=== PATIENT | male | born 1965 | race Caucasian/White ===

== ENCOUNTER 2023-03-01 13:49 | Inpatient (IN) | payer MEDICARE, OTHER ==
[~2023-03-01] VITALS: Ht 175.3 cm; Wt 104.3 kg
[2023-03-01] MEDS ORDERED: MAGNESIUM HYDROXIDE 30 ML UDC PO PRN (14:00)
[2023-03-01] MEDS ORDERED: MAG HYDROX/AL HYDROX/SIMETH 30 ML UDC PO PRN (14:00)
[2023-03-01] MEDS: LORAZEPAM 1 MG TABLET PO PRN (14:25)
[2023-03-01] MEDS ORDERED: FAMO20TA8 PO (14:38)
[2023-03-01] MEDS ORDERED: TAMS-12 PO (14:38)
[2023-03-01] MEDS ORDERED: EVOL420W2 SQ (14:38)
[2023-03-01] MEDS ORDERED: ALLO100T PO (14:38)
[2023-03-01] MEDS ORDERED: EMPA10TA PO (14:38)
[2023-03-01] MEDS ORDERED: MONT10TA22 PO (14:38)
[2023-03-01] MEDS ORDERED: METO50TA16 PO (14:38)
[2023-03-01] MEDS ORDERED: LAMO200T2 PO (14:38)
[2023-03-01] MEDS ORDERED: CHOL200059 PO (14:38)
[2023-03-01] MEDS ORDERED: BUME1TAB8 PO (14:38)
[2023-03-01] MEDS ORDERED: INSU100V27 SQ (14:38)
[2023-03-01] MEDS ORDERED: SACU1TAB PO (14:38)
[2023-03-01] MEDS ORDERED: CALC0.253 PO (14:38)
[2023-03-01] MEDS ORDERED: MOME13HF IH (14:38)
[2023-03-01] MEDS ORDERED: OMEG1CAP18 PO (14:38)
[2023-03-01] MEDS ORDERED: BLOO-668 IN (14:38)
[2023-03-01] MEDS ORDERED: DEXT50VI3 IV (14:38)
[2023-03-01] MEDS ORDERED: INSU100V7 SQ (14:38)
[2023-03-01] MEDS ORDERED: APIX5TAB PO (14:38)
[2023-03-01] MEDS ORDERED: ATOR80TA PO (14:38)
[2023-03-01] MEDS ORDERED: DOCU100C36 PO (14:38)
[2023-03-01] MEDS ORDERED: CLON0.1T PO (14:38)
[2023-03-01] MEDS ORDERED: ISOS60TA72 PO (14:38)
[2023-03-01] MEDS ORDERED: POTA20TA83 PO (14:38)
[2023-03-01] MEDS ORDERED: SERT100T PO (14:38)
[2023-03-01] MEDS ORDERED: ALBU18HF2 IH (14:38)
[2023-03-01] MEDS ORDERED: HYDR100T27 PO (14:38)
[2023-03-01] MEDS ORDERED: OLAN5TAB3 PO (14:38)
[2023-03-01] MEDS ORDERED: FINERENONE PO (14:38)
[2023-03-01] MEDS ORDERED: FERR325T24 PO (14:38)
[2023-03-01] MEDS ORDERED: MULT-465 PO (14:38)
[2023-03-01 16:00] VITALS: BP 134/88; TEMP 98.4; O2SAT 95
[2023-03-01] MEDS ORDERED: BLOOD SUGAR DIAGNOSTIC 1 EACH STRIP IN ONE (16:00)
[2023-03-01] MEDS ORDERED: CLONIDINE HCL 0.1 MG TABLET PO PRN (20:00)
[2023-03-01 21:13] LABS: CALCIUM, SERUM 10.2 mg/dL (8.5-10.1); CREATININE 2.5 mg/dL (0.6-1.3); POTASSIUM 3.4 mmol/L (3.5-5.1)
[2023-03-01] MEDS ORDERED: BLOOD SUGAR DIAGNOSTIC 1 EACH STRIP IN SCH (22:00)
[2023-03-01] MEDS ORDERED: DEXTROSE 50%-WATER 50 ML DISP.SYRIN IV PRN (22:00)
[2023-03-01] MEDS: INSULIN REGULAR, HUMAN 100 UNIT/ML 3 ML VIAL SQ PRN (22:17)
[2023-03-01] MEDS: FAMOTIDINE (20 MG) 20 MG TABLET PO SCH (22:18)
[2023-03-01] MEDS: INSULIN GLARGINE, 100 UNIT/ML CARTRIDGE SQ SCH (22:18)
[2023-03-01] MEDS: ATORVASTATIN 40 MG TABLET PO SCH (22:19)
[2023-03-01] MEDS: BLOOD SUGAR DIAGNOSTIC 1 EACH STRIP IN SCH (22:55)
[2023-03-01] MEDS: ZOLPIDEM TARTRATE 5 MG TABLET PO PRN (23:10)
[2023-03-02 07:17] LABS: ALBUMIN 3.3 g/dL (3.4-5.0); BILIRUBIN,TOTAL 0.4 mg/dL (0.2-1.0); CALCIUM, SERUM 9.8 mg/dL (8.5-10.1); CREATININE 2.4 mg/dL (0.6-1.3)
[2023-03-02] MEDS: BLOOD SUGAR DIAGNOSTIC 1 EACH STRIP IN SCH ×2 (07:47→11:28)
[2023-03-02] MEDS: INSULIN REGULAR, HUMAN 100 UNIT/ML 3 ML VIAL SQ PRN ×3 (07:51→17:22)
[2023-03-02 08:00] VITALS: BP 146/66; TEMP 97.8; O2SAT 97
[2023-03-02] MEDS: FERROUS SULFATE (325 MG) 325 MG/TAB TABLET PO SCH (08:03)
[2023-03-02] MEDS: ALBUTEROL FS 2.5 MG/3 ML VIAL.NEB NEB SCH ×3 (08:31→19:30)
[2023-03-02] MEDS: CHOLECALCIFEROL 1,000 UNIT TABLET (VIT D3) PO SCH (08:33)
[2023-03-02] MEDS: hydrALAZINE HCL 50 MG TABLET PO SCH ×3 (08:34→16:17)
[2023-03-02] MEDS: DOCUSATE SODIUM 100 MG CAPSULE PO SCH (08:35)
[2023-03-02] MEDS: ALLOPURINOL 100 MG TABLET PO SCH (08:35)
[2023-03-02] MEDS: MONTELUKAST SODIUM (10MG) 10 MG TABLET PO SCH (08:35)
[2023-03-02] MEDS: METOPROLOL TARTRATE 50 MG TABLET PO SCH ×2 (08:35→16:16)
[2023-03-02] MEDS: ISOSORBIDE MONONITRATE (30MG) 30 MG TAB.SR.24H PO SCH (08:35)
[2023-03-02] MEDS: BUMETANIDE (1 MG) 1 MG TABLET PO SCH (08:35)
[2023-03-02] MEDS: TAMSULOSIN 0.4 MG CAP.SR.24H PO SCH (08:35)
[2023-03-02] MEDS: APIXABAN 5 MG TABLET PO SCH ×2 (08:36→16:16)
[2023-03-02] MEDS: CALCITRIOL 0.25 MCG CAPSULE PO SCH (08:37)
[2023-03-02] MEDS ORDERED: FLUTICASONE/SALMETEROL DISKUS IH SCH (09:00)
[2023-03-02] MEDS ORDERED: POTASSIUM CHLORIDE 20 MEQ TAB.PRT.SR PO SCH (10:30)
[2023-03-02] MEDS: POTASSIUM CHLORIDE 20 MEQ TAB.PRT.SR PO SCH ×2 (10:30→12:16)
[2023-03-02] MEDS: OLANZAPINE 10 MG TABLET PO SCH ×2 (11:33→16:15)
[2023-03-02] MEDS: LITHIUM CARBONATE 150 MG CAPSULE PO SCH ×2 (11:33→23:15)
[2023-03-02 13:23] LABS: APPEARANCE,URINE CLEAR (CLEAR); BILIRUBIN,URINE NEGATIVE (NEGATIVE); BLOOD, URINE NEGATIVE Ery/uL (NEGATIVE); COLOR,URINE YELLOW (YELLOW); KETONES,URINE NEGATIVE (NEGATIVE); LEUKOCYTE ESTERASE ,URINE NEGATIVE (NEGATIVE); NITRITE, URINE NEGATIVE (NEGATIVE); PH,URINE 5.5 (5.0-8.0); PROTEIN,URINE TRACE mg/dl (NEGATIVE); UGLUCOSE 2+ mg/dL (NEGATIVE); UROBILINOGEN,URINE 0.2 EU/dL (0.2)
[2023-03-02 13:24] LABS: ADD URINE CULTURE NO; BACTERIA,URINE Rare /HPF (None Seen); EOSINOPHIL,URINE None Seen; RBC,URINE 0-2 /HPF (0-2); SQUAMOUS EPITHELIAL CELL,UR Rare /HPF (None Seen); WBC,URINE 0-2 /HPF (0-3)
[2023-03-02 13:33] LABS: CREATININE, URINE 55.1 MG/DL (30.0-125.0); URINE TOTAL PROTEIN 36.2 mg/dL (0-11.9)
[2023-03-02 13:49] VITALS: O2SAT 98
[2023-03-02] MEDS: BUDESONIDE RESPULE INH 0.5 MG/2 ML AMPUL.NEB NEB SCH (13:49)
[2023-03-02] MEDS ORDERED: DEXTROSE 50%-WATER 50 ML DISP.SYRIN IV PRN (14:00)
[2023-03-02 14:03] VITALS: O2SAT 100
[2023-03-02 15:59] VITALS: BP 106/63; TEMP 97.7; O2SAT 99
[2023-03-02] MEDS: LORAZEPAM 1 MG TABLET PO PRN (16:39)
[2023-03-02] MEDS: BLOOD SUGAR DIAGNOSTIC 1 EACH STRIP VI SCH (17:20)
[2023-03-02] MEDS ORDERED: OLANZAPINE 10 MG VIAL IM ONE (17:30)
[2023-03-02 20:00] VITALS: BP 127/74; TEMP 98.1; O2SAT 97
[2023-03-02] MEDS ORDERED: FAMOTIDINE (20 MG) 20 MG TABLET ONE (21:51)
[2023-03-02] MEDS: ATORVASTATIN 40 MG TABLET PO SCH (23:16)
[2023-03-02] MEDS: FAMOTIDINE (20 MG) 20 MG TABLET PO SCH (23:18)
[2023-03-03] MEDS: BLOOD SUGAR DIAGNOSTIC 1 EACH STRIP VI SCH ×5 (00:02→21:28)
[2023-03-03] MEDS: INSULIN GLARGINE, 100 UNIT/ML CARTRIDGE SQ SCH ×2 (00:04→21:18)
[2023-03-03] MEDS: *INSULIN REGULAR(HUMULIN R)HUM 100 UNIT/ML VIAL SQ PRN ×2 (00:07→21:16)
[2023-03-03] MEDS: ALBUTEROL FS 2.5 MG/3 ML VIAL.NEB NEB SCH ×4 (01:30→20:26)
[2023-03-03 07:22] LABS: BASOPHILS # (AUTO) 0.1 K/uL (0.0-0.2); BASOPHILS % (AUTO) 0.7 % (0.0-2.0); EOSINOPHILS # (AUTO) 0.7 K/uL (0.0-0.7); EOSINOPHILS % (AUTO) 8.6 % (0.0-6.0); HEMATOCRIT 39 % (39-51); HEMOGLOBIN 13.4 g/dL (13.5-17.5); LYMPHOCYTES # (AUTO) 2.1 K/uL (0.8-4.8); MEAN CORPUSCULAR HEMOGLOBIN 33 PG (26.0-33.0); MEAN CORPUSCULAR HGB CONC 34 g/dl (31.0-36.0); MEAN CORPUSCULAR VOLUME 98 fL (80-96); MONOCYTES # (AUTO) 1.1 K/uL (0.1-1.30); MONOCYTES % (AUTO) 14.4 % (2.0-12.0); NEUTROPHILS % (AUTO) 50.3 % (43.0-81.0); PLATELET COUNT (AUTO) 189 K/uL (150-450); RED BLOOD CELL COUNT(AUTO) 4.03 MIL/uL (4.5-6.0); RED CELL DISTRIBUTION WIDTH 14.1 % (11.5-15.0)
[2023-03-03 07:38] LABS: MAGNESIUM 2.4 mg/dL (1.8-2.4); PHOSPHORUS 3.7 mg/dL (2.5-4.9)
[2023-03-03 08:00] VITALS: BP 135/83; TEMP 97.6; O2SAT 99
[2023-03-03] MEDS: BUDESONIDE RESPULE INH 0.5 MG/2 ML AMPUL.NEB NEB SCH ×2 (08:00→14:20)
[2023-03-03] MEDS: CALCITRIOL 0.25 MCG CAPSULE PO SCH (09:01)
[2023-03-03] MEDS: LITHIUM CARBONATE 150 MG CAPSULE PO SCH ×2 (09:01→21:10)
[2023-03-03] MEDS: CHOLECALCIFEROL 1,000 UNIT TABLET (VIT D3) PO SCH (09:01)
[2023-03-03] MEDS: SERTRALINE HCL 50 MG TABLET PO SCH (09:02)
[2023-03-03] MEDS: DOCUSATE SODIUM 100 MG CAPSULE PO SCH (09:02)
[2023-03-03] MEDS: FERROUS SULFATE (325 MG) 325 MG/TAB TABLET PO SCH (09:02)
[2023-03-03] MEDS: ALLOPURINOL 100 MG TABLET PO SCH (09:02)
[2023-03-03] MEDS: OLANZAPINE 10 MG TABLET PO SCH ×2 (09:02→17:04)
[2023-03-03] MEDS: TAMSULOSIN 0.4 MG CAP.SR.24H PO SCH (09:03)
[2023-03-03] MEDS: APIXABAN 5 MG TABLET PO SCH ×2 (09:03→17:02)
[2023-03-03] MEDS: MONTELUKAST SODIUM (10MG) 10 MG TABLET PO SCH (09:04)
[2023-03-03] MEDS: INSULIN REGULAR, HUMAN 100 UNIT/ML 3 ML VIAL SQ PRN ×3 (09:07→17:26)
[2023-03-03] MEDS: METOPROLOL TARTRATE 50 MG TABLET PO SCH ×2 (09:09→17:03)
[2023-03-03] MEDS: hydrALAZINE HCL 50 MG TABLET PO SCH ×3 (09:09→17:00)
[2023-03-03] MEDS: ISOSORBIDE MONONITRATE (30MG) 30 MG TAB.SR.24H PO SCH (09:10)
[2023-03-03] MEDS: BUMETANIDE (1 MG) 1 MG TABLET PO SCH (09:10)
[2023-03-03] MEDS: LORAZEPAM 1 MG TABLET PO PRN (12:35)
[2023-03-03 16:00] VITALS: BP 122/84; TEMP 97.9; O2SAT 99
[2023-03-03 20:26] VITALS: O2SAT 99
[2023-03-03 20:36] VITALS: O2SAT 100
[2023-03-03 20:44] VITALS: BP 99/60; TEMP 98.1; O2SAT 98
[2023-03-03] MEDS: ATORVASTATIN 40 MG TABLET PO SCH (21:10)
[2023-03-03] MEDS: FAMOTIDINE (20 MG) 20 MG TABLET PO SCH (21:11)
[2023-03-03] MEDS: ACETAMINOPHEN 325 MG TABLET PO PRN (21:35)
[2023-03-03] MEDS: ZOLPIDEM TARTRATE 5 MG TABLET PO PRN (22:00)
[2023-03-04] VITALS (7 sets, daily range): BP systolic 126–147; BP diastolic 79–98; TEMP 97.5–98; O2SAT 95–100
[2023-03-04] MEDS: ALBUTEROL FS 2.5 MG/3 ML VIAL.NEB NEB SCH ×4 (01:30→20:27)
[2023-03-04 06:07] LABS: PTH, INTACT 114 pg/mL (15-65)
[2023-03-04] MEDS: BUDESONIDE RESPULE INH 0.5 MG/2 ML AMPUL.NEB NEB SCH ×2 (07:05→15:00)
[2023-03-04 07:24] LABS: BASOPHILS # (AUTO) 0.1 K/uL (0.0-0.2); BASOPHILS % (AUTO) 0.8 % (0.0-2.0); EOSINOPHILS # (AUTO) 0.6 K/uL (0.0-0.7); EOSINOPHILS % (AUTO) 8.1 % (0.0-6.0); HEMATOCRIT 39 % (39-51); HEMOGLOBIN 13.2 g/dL (13.5-17.5); LYMPHOCYTES # (AUTO) 2.4 K/uL (0.8-4.8); LYMPHOCYTES % (AUTO) 30.3 % (20.0-44.0); MEAN CORPUSCULAR HEMOGLOBIN 34 PG (26.0-33.0); MEAN CORPUSCULAR HGB CONC 34 g/dl (31.0-36.0); MEAN CORPUSCULAR VOLUME 99 fL (80-96); MONOCYTES # (AUTO) 1.2 K/uL (0.1-1.30); MONOCYTES % (AUTO) 15.2 % (2.0-12.0); NEUTROPHILS # (AUTO) 3.6 K/uL (1.8-8.9); NEUTROPHILS % (AUTO) 45.6 % (43.0-81.0); PLATELET COUNT (AUTO) 165 K/uL (150-450); RED BLOOD CELL COUNT(AUTO) 3.93 MIL/uL (4.5-6.0); RED CELL DISTRIBUTION WIDTH 14.3 % (11.5-15.0); WHITE BLOOD COUNT (AUTO) 7.9 K/uL (4.3-11.0)
[2023-03-04] MEDS: BLOOD SUGAR DIAGNOSTIC 1 EACH STRIP VI SCH ×5 (07:30→22:21)
[2023-03-04 07:46] LABS: BILIRUBIN,TOTAL 0.3 mg/dL (0.2-1.0); CALCIUM, SERUM 10.1 mg/dL (8.5-10.1); CREATININE 2.3 mg/dL (0.6-1.3); MAGNESIUM 2.5 mg/dL (1.8-2.4); PHOSPHORUS 4.1 mg/dL (2.5-4.9); POTASSIUM 3.9 mmol/L (3.5-5.1); TOTAL PROTEIN, SERUM 6.5 g/dL (6.4-8.2)
[2023-03-04] MEDS: INSULIN REGULAR, HUMAN 100 UNIT/ML 3 ML VIAL SQ PRN ×3 (07:57→17:25)
[2023-03-04] MEDS: TAMSULOSIN 0.4 MG CAP.SR.24H PO SCH (08:11)
[2023-03-04] MEDS: ALLOPURINOL 100 MG TABLET PO SCH (08:11)
[2023-03-04] MEDS: CHOLECALCIFEROL 1,000 UNIT TABLET (VIT D3) PO SCH (08:11)
[2023-03-04] MEDS: DOCUSATE SODIUM 100 MG CAPSULE PO SCH (08:12)
[2023-03-04] MEDS: MONTELUKAST SODIUM (10MG) 10 MG TABLET PO SCH (08:12)
[2023-03-04] MEDS: CALCITRIOL 0.25 MCG CAPSULE PO SCH (08:12)
[2023-03-04] MEDS: FERROUS SULFATE (325 MG) 325 MG/TAB TABLET PO SCH (08:12)
[2023-03-04] MEDS: SERTRALINE HCL 50 MG TABLET PO SCH (08:12)
[2023-03-04] MEDS: OLANZAPINE 10 MG TABLET PO SCH ×2 (08:13→16:41)
[2023-03-04] MEDS: APIXABAN 5 MG TABLET PO SCH ×2 (08:13→16:41)
[2023-03-04] MEDS: BUMETANIDE (1 MG) 1 MG TABLET PO SCH (08:13)
[2023-03-04] MEDS: ISOSORBIDE MONONITRATE (30MG) 30 MG TAB.SR.24H PO SCH (08:14)
[2023-03-04] MEDS: LITHIUM CARBONATE 150 MG CAPSULE PO SCH ×2 (08:14→21:44)
[2023-03-04] MEDS: METOPROLOL TARTRATE 50 MG TABLET PO SCH ×2 (08:15→16:40)
[2023-03-04] MEDS: hydrALAZINE HCL 50 MG TABLET PO SCH ×3 (08:15→16:41)
[2023-03-04] MEDS: LORAZEPAM 1 MG TABLET PO PRN ×2 (10:37→23:17)
[2023-03-04] MEDS: ATORVASTATIN 40 MG TABLET PO SCH (21:44)
[2023-03-04] MEDS: FAMOTIDINE (20 MG) 20 MG TABLET PO SCH (21:44)
[2023-03-04] MEDS: INSULIN GLARGINE, 100 UNIT/ML CARTRIDGE SQ SCH (22:24)
[2023-03-04] MEDS: *INSULIN REGULAR(HUMULIN R)HUM 100 UNIT/ML VIAL SQ PRN (22:26)
[2023-03-05] MEDS: ALBUTEROL FS 2.5 MG/3 ML VIAL.NEB NEB SCH ×4 (01:30→19:30)
[2023-03-05] MEDS: ZOLPIDEM TARTRATE 5 MG TABLET PO PRN ×2 (02:39→21:31)
[2023-03-05] MEDS: BUDESONIDE RESPULE INH 0.5 MG/2 ML AMPUL.NEB NEB SCH ×2 (07:05→15:00)
[2023-03-05] MEDS: BLOOD SUGAR DIAGNOSTIC 1 EACH STRIP VI SCH ×4 (07:57→21:41)
[2023-03-05] MEDS: INSULIN REGULAR, HUMAN 100 UNIT/ML 3 ML VIAL SQ PRN ×2 (07:59→11:57)
[2023-03-05 08:04] VITALS: BP 161/93; TEMP 96.3; O2SAT 99
[2023-03-05] MEDS: ALLOPURINOL 100 MG TABLET PO SCH (08:17)
[2023-03-05] MEDS: SERTRALINE HCL 50 MG TABLET PO SCH (08:17)
[2023-03-05] MEDS: OLANZAPINE 10 MG TABLET PO SCH ×2 (08:17→17:46)
[2023-03-05] MEDS: BUMETANIDE (1 MG) 1 MG TABLET PO SCH (08:17)
[2023-03-05] MEDS: TAMSULOSIN 0.4 MG CAP.SR.24H PO SCH (08:17)
[2023-03-05] MEDS: DOCUSATE SODIUM 100 MG CAPSULE PO SCH (08:17)
[2023-03-05] MEDS: LITHIUM CARBONATE 150 MG CAPSULE PO SCH ×2 (08:17→21:31)
[2023-03-05] MEDS: CALCITRIOL 0.25 MCG CAPSULE PO SCH (08:17)
[2023-03-05] MEDS: FERROUS SULFATE (325 MG) 325 MG/TAB TABLET PO SCH (08:17)
[2023-03-05] MEDS: CHOLECALCIFEROL 1,000 UNIT TABLET (VIT D3) PO SCH (08:18)
[2023-03-05] MEDS: ISOSORBIDE MONONITRATE (30MG) 30 MG TAB.SR.24H PO SCH (08:18)
[2023-03-05] MEDS: MONTELUKAST SODIUM (10MG) 10 MG TABLET PO SCH (08:19)
[2023-03-05] MEDS: APIXABAN 5 MG TABLET PO SCH ×2 (08:19→17:47)
[2023-03-05] MEDS: METOPROLOL TARTRATE 50 MG TABLET PO SCH ×2 (08:19→17:47)
[2023-03-05] MEDS: hydrALAZINE HCL 50 MG TABLET PO SCH ×3 (08:20→17:48)
[2023-03-05] MEDS: LORAZEPAM 1 MG TABLET PO PRN (10:50)
[2023-03-05 15:57] VITALS: BP 132/94; TEMP 98; O2SAT 98
[2023-03-05 20:16] VITALS: BP 136/87; TEMP 98.8; O2SAT 95
[2023-03-05] MEDS: FAMOTIDINE (20 MG) 20 MG TABLET PO SCH (21:31)
[2023-03-05] MEDS: ATORVASTATIN 40 MG TABLET PO SCH (21:31)
[2023-03-05] MEDS: INSULIN GLARGINE, 100 UNIT/ML CARTRIDGE SQ SCH (21:44)
[2023-03-05] MEDS: *INSULIN REGULAR(HUMULIN R)HUM 100 UNIT/ML VIAL SQ PRN (21:44)
[2023-03-06] MEDS: ALBUTEROL FS 2.5 MG/3 ML VIAL.NEB NEB SCH ×4 (01:30→19:30)
[2023-03-06] MEDS: ACETAMINOPHEN 325 MG TABLET PO PRN (04:12)
[2023-03-06] MEDS: BUDESONIDE RESPULE INH 0.5 MG/2 ML AMPUL.NEB NEB SCH ×2 (07:05→15:00)
[2023-03-06] MEDS: INSULIN REGULAR, HUMAN 100 UNIT/ML 3 ML VIAL SQ PRN ×3 (07:40→17:11)
[2023-03-06] MEDS: BLOOD SUGAR DIAGNOSTIC 1 EACH STRIP VI SCH ×4 (07:40→21:14)
[2023-03-06 08:00] VITALS: BP 146/98; TEMP 98.7; O2SAT 96
[2023-03-06] MEDS: ISOSORBIDE MONONITRATE (30MG) 30 MG TAB.SR.24H PO SCH (08:14)
[2023-03-06] MEDS: hydrALAZINE HCL 50 MG TABLET PO SCH ×3 (08:14→16:26)
[2023-03-06] MEDS: METOPROLOL TARTRATE 50 MG TABLET PO SCH ×2 (08:14→16:26)
[2023-03-06] MEDS: CALCITRIOL 0.25 MCG CAPSULE PO SCH (08:15)
[2023-03-06] MEDS: BUMETANIDE (1 MG) 1 MG TABLET PO SCH (08:15)
[2023-03-06] MEDS: SERTRALINE HCL 50 MG TABLET PO SCH (08:15)
[2023-03-06] MEDS: MONTELUKAST SODIUM (10MG) 10 MG TABLET PO SCH (08:15)
[2023-03-06] MEDS: FERROUS SULFATE (325 MG) 325 MG/TAB TABLET PO SCH (08:15)
[2023-03-06] MEDS: ALLOPURINOL 100 MG TABLET PO SCH (08:15)
[2023-03-06] MEDS: LITHIUM CARBONATE 150 MG CAPSULE PO SCH ×2 (08:15→21:13)
[2023-03-06] MEDS: OLANZAPINE 10 MG TABLET PO SCH (08:15)
[2023-03-06] MEDS: CHOLECALCIFEROL 1,000 UNIT TABLET (VIT D3) PO SCH (08:15)
[2023-03-06] MEDS: TAMSULOSIN 0.4 MG CAP.SR.24H PO SCH (08:16)
[2023-03-06] MEDS: DOCUSATE SODIUM 100 MG CAPSULE PO SCH (08:16)
[2023-03-06] MEDS: APIXABAN 5 MG TABLET PO SCH ×2 (08:16→16:25)
[2023-03-06] MEDS: OLANZAPINE 5 MG TABLET PO SCH ×2 (08:26→16:26)
[2023-03-06 16:00] VITALS: BP 145/96; TEMP 97.5; O2SAT 99
[2023-03-06 20:13] VITALS: BP 149/97; TEMP 98.4; O2SAT 98
[2023-03-06] MEDS: FAMOTIDINE (20 MG) 20 MG TABLET PO SCH (21:13)
[2023-03-06] MEDS: ATORVASTATIN 40 MG TABLET PO SCH (21:13)
[2023-03-06] MEDS: INSULIN GLARGINE, 100 UNIT/ML CARTRIDGE SQ SCH (21:16)
[2023-03-06] MEDS: *INSULIN REGULAR(HUMULIN R)HUM 100 UNIT/ML VIAL SQ PRN (21:17)
[2023-03-06] MEDS: ZOLPIDEM TARTRATE 5 MG TABLET PO PRN (21:19)
[2023-03-07] MEDS: LORAZEPAM 1 MG TABLET PO PRN (00:18)
[2023-03-07 00:35] VITALS: O2SAT 97
[2023-03-07] MEDS: ALBUTEROL FS 2.5 MG/3 ML VIAL.NEB NEB SCH ×3 (00:35→13:18)
[2023-03-07 00:50] VITALS: O2SAT 100
[2023-03-07 07:08] LABS: *SPE A/G RATIO 1.1 (0.7-1.7); *SPE ALBUMIN 3.3 g/dL (2.9-4.4); *SPE ALPHA-1-GLOBULIN 0.3 g/dL (0.0-0.4); *SPE ALPHA-2-GLOBULIN 0.7 g/dL (0.4-1.0); *SPE BETA GLOBULIN 0.9 g/dL (0.7-1.3); *SPE GLOBULIN, TOTAL 2.9 g/dL (2.2-3.9); *SPE M-SPIKE Not Observed g/dL (Not Observed); *SPE PROTEIN TOTAL 6.2 g/dL (6.0-8.5)
[2023-03-07] MEDS: BLOOD SUGAR DIAGNOSTIC 1 EACH STRIP VI SCH ×2 (07:41→11:58)
[2023-03-07] MEDS: INSULIN REGULAR, HUMAN 100 UNIT/ML 3 ML VIAL SQ PRN ×2 (07:43→11:53)
[2023-03-07] MEDS: FERROUS SULFATE (325 MG) 325 MG/TAB TABLET PO SCH (07:57)
[2023-03-07 08:00] VITALS: BP 119/98; TEMP 98.7; O2SAT 99
[2023-03-07 08:09] VITALS: O2SAT 98
[2023-03-07] MEDS: BUDESONIDE RESPULE INH 0.5 MG/2 ML AMPUL.NEB NEB SCH ×2 (08:09→15:00)
[2023-03-07 08:19] VITALS: O2SAT 100
[2023-03-07] MEDS: ISOSORBIDE MONONITRATE (30MG) 30 MG TAB.SR.24H PO SCH (08:24)
[2023-03-07] MEDS: LITHIUM CARBONATE 150 MG CAPSULE PO SCH (08:26)
[2023-03-07] MEDS: DOCUSATE SODIUM 100 MG CAPSULE PO SCH (08:28)
[2023-03-07] MEDS: CHOLECALCIFEROL 1,000 UNIT TABLET (VIT D3) PO SCH (08:28)
[2023-03-07] MEDS: APIXABAN 5 MG TABLET PO SCH (08:30)
[2023-03-07] MEDS: METOPROLOL TARTRATE 50 MG TABLET PO SCH (08:31)
[2023-03-07] MEDS: hydrALAZINE HCL 50 MG TABLET PO SCH ×2 (08:32→13:00)
[2023-03-07] MEDS: ALLOPURINOL 100 MG TABLET PO SCH (08:32)
[2023-03-07] MEDS: MONTELUKAST SODIUM (10MG) 10 MG TABLET PO SCH (08:33)
[2023-03-07] MEDS: CALCITRIOL 0.25 MCG CAPSULE PO SCH (08:38)
[2023-03-07] MEDS: SERTRALINE HCL 50 MG TABLET PO SCH (08:39)
[2023-03-07] MEDS: BUMETANIDE (1 MG) 1 MG TABLET PO SCH (08:50)
[2023-03-07] MEDS: OLANZAPINE 5 MG TABLET PO SCH (08:51)
[2023-03-07] MEDS: TAMSULOSIN 0.4 MG CAP.SR.24H PO SCH (08:51)
[2023-03-07 13:00] VITALS: BP 100/90
[2023-03-07] MEDS ORDERED: OLANZAPINE 5 MG TABLET PO SCH (17:00)
== END 2023-03-07 14:30 | disposition home or self-care (01) | DRG 885 ==
LOC: GPS 13:49
PROVIDERS: ADMIT Psychiatry & Neurology Psychiatry
PROC: 0JBQ3ZZ Excision of Right Foot Subcutaneous Tissue and Fascia, Percutaneous Approach (ICD-10-PCS; principal; 2023-03-06)
DX: F31.2 Bipolar disorder, current episode manic severe with psychotic features (principal); N18.30 Chronic kidney disease, stage 3 unspecified; I13.0 Hypertensive heart and chronic kidney disease with heart failure and stage 1 through stage 4 chronic kidney disease, or unspecified chronic kidney disease; I48.20 Chronic atrial fibrillation, unspecified; I42.0 Dilated cardiomyopathy; L97.518 Non-pressure chronic ulcer of other part of right foot with other specified severity; I44.7 Left bundle-branch block, unspecified; E11.22 Type 2 diabetes mellitus with diabetic chronic kidney disease; E87.6 Hypokalemia; M89.8X9 Other specified disorders of bone, unspecified site; N18.32 Chronic kidney disease, stage 3b; E11.42 Type 2 diabetes mellitus with diabetic polyneuropathy; E11.621 Type 2 diabetes mellitus with foot ulcer; L84 Corns and callosities; B07.9 Viral wart, unspecified; G47.00 Insomnia, unspecified; I25.10 Atherosclerotic heart disease of native coronary artery without angina pectoris; I25.2 Old myocardial infarction; Z79.84 Long term (current) use of oral hypoglycemic drugs; Z79.4 Long term (current) use of insulin; Z98.61 Coronary angioplasty status; D64.9 Anemia, unspecified; Z79.899 Other long term (current) drug therapy
CPT/HCPCS: 36415; 76770-TC; 80048-TC; 80053-TC; 80061-TC; 81001; 82550-TC; 82570-TC; 82962-TC; 83735-TC; 83970; 84100-TC; 84155; 84165; 84300-TC; 85025-TC; 94799-TC; J1815; J3490